=== PATIENT | male | born 1970 | race Caucasian/White ===

== ENCOUNTER 2020-11-07 12:30 | Day surgery (SDC) | payer OTHER ==
[2020-11-04 09:23] VITALS: BP 132/77
[2020-11-07] VITALS (20 sets, daily range): BP systolic 121–163; BP diastolic 69–90
[~2020-11-07] VITALS: Ht 172.7 cm; Wt 89.7 kg
[~2020-11-07 12:30] MED LIST: ESOM20CA31 PO; LORA10TA7 PO; OMEG-148 PO; TRUVT PO; VITA-382 PO
[2020-11-07] MEDS ORDERED: LACTATED RINGERS 1000ML 1,000 ML IV ONE (12:56)
[2020-11-07] MEDS ORDERED: MIDAZOLAM HCL 1 MG/ML 2ML VIAL ONE ×2 (13:25→15:25)
[2020-11-07] MEDS ORDERED: FENTANYL CITRATE PF 50 MCG/1 ML 5ML AMP IV ONE (13:25)
[2020-11-07] MEDS ORDERED: PROPOFOL 10 MG/ML 20ML VIAL IV ONE (13:26)
[2020-11-07] MEDS: CEFTRIAXONE 1G VIAL ONE ×2 (13:28→13:30)
[2020-11-07] MEDS ORDERED: IOHEXOL-350 50ML VIAL IV ONE (13:40)
[2020-11-07] MEDS ORDERED: DEXAMETHASONE SOD PHOSPHATE 10MG/ML 1ML VIAL ONE (14:31)
[2020-11-07] MEDS ORDERED: MEPERIDINE-PF 25 MG/ML SYG ONE ×3 (14:32→14:55)
[2020-11-07] MEDS ORDERED: ONDANSETRON 4MG INJ ONE (14:32)
[2020-11-07] MEDS ORDERED: FENTANYL CITRATE PF 50 MCG/1 ML 2ML VIAL ONE ×2 (15:03→15:17)
[2020-11-07] MEDS ORDERED: PHENAZOPYRIDINE HCL 200 MG TABLET ONE (15:10)
== END 2020-11-07 16:25 | disposition home or self-care (01) ==
LOC: DAH 12:30
PROVIDERS: ATTEND Urology
DX: N13.2 Hydronephrosis with renal and ureteral calculous obstruction (principal); Z20.822 Contact with and (suspected) exposure to COVID-19; N40.0 Benign prostatic hyperplasia without lower urinary tract symptoms; N17.9 Acute kidney failure, unspecified; Z79.899 Other long term (current) drug therapy; Z88.6 Allergy status to analgesic agent; Z91.040 Latex allergy status; Z98.890 Other specified postprocedural states; Z88.8 Allergy status to other drugs, medicaments and biological substances
CPT/HCPCS: 36415; 52356; 74018; 74420; 82360; 87635; A4215; A4221; A4222; A4223; A4354; A4358; A4510; A4600; A4657; A4663; A6260; C1758 ×2; C2617; C9803; J0696; J1100; J2175 ×3; J2250 ×2; J2405; J2704; J3010 ×3; J7120; Q9967

== ENCOUNTER 2023-02-16 11:44 | Emergency (ER) | payer OTHER ==
[~2023-02-16] VITALS: Ht 172.7 cm; Wt 117.9 kg
[2023-02-16] MEDS ORDERED: LACTATED RINGERS 1000ML 1,000 ML IV ONE (13:30)
[2023-02-16 14:11] LABS: BASOPHILS # (AUTO) 0.04 K/uL (0.00-0.20); BASOPHILS % (AUTO) 0.5 % (0.0-5.0); EOSINOPHILS # (AUTO) 0.11 K/uL (0.00-0.70); EOSINOPHILS % (AUTO) 1.4 % (0.0-8.0); HEMATOCRIT 42.7 % (42-54); IMMATURE GRANULOCYTE ABSOLUTE 0.07 K/uL (0-1); LYMPHOCYTES # (AUTO) 2.3 K/uL (1.0-4.8); LYMPHOCYTES % (AUTO) 29.8 % (21.0-51.0); MEAN CORPUSCULAR HEMOGLOBIN 30.4 pg (27.0-33.0); MEAN CORPUSCULAR HGB CONC 31.9 g/dL (32.0-36.0); MEAN CORPUSCULAR VOLUME 95.3 fL (79-99); MONOCYTES # (AUTO) 0.9 K/uL (0.1-1.0); MONOCYTES % (AUTO) 11.7 % (3.0-13.0); NEUTROPHILS # (AUTO) 4.3 K/uL (1.8-7.7); NEUTROPHILS % (AUTO) 55.7 % (40.0-77.0); PLATELET COUNT (AUTO) 325 K/uL (130-400); RED BLOOD CELL COUNT(AUTO) 4.48 MIL/uL (4.50-6.20); RED CELL DISTRIBUTION WIDTH 13.9 % (11.0-15.5); WHITE BLOOD COUNT (AUTO) 7.6 K/uL (4.8-10.8)
[2023-02-16 14:19] LABS: CREATININE 0.8 mg/dL (0.5-1.5); POTASSIUM 3.6 mmol/L (3.5-5.1)
[2023-02-16 14:23] LABS: ALBUMIN 3.2 g/dL (3.5-5.0); BILIRUBIN,TOTAL 0.3 mg/dL (0.2-1.0); TOTAL PROTEIN, SERUM 7.2 g/dL (6.0-8.3)
[2023-02-16 15:22] LABS: ADD UA MICROSCOPIC YES; APPEARANCE,URINE CLEAR (CLEAR); BILIRUBIN,URINE NEGATIVE (NEGATIVE); COLOR,URINE LIGHT-YELLOW (YELLOW); GLUCOSE, URINE (UA) NEGATIVE (NEGATIVE); KETONES,URINE NEGATIVE (NEGATIVE); LEUKOCYTE ESTERASE ,URINE NEGATIVE Leu/uL (NEGATIVE); NITRATE,URINE NEGATIVE (NEGATIVE); OCCULT BLOOD,URINE NEGATIVE (NEGATIVE); PROTEIN,URINE NEGATIVE (NEGATIVE); UROBILINOGEN,URINE 0.2 mg/dL (0.2-1.0)
[2023-02-16 15:23] LABS: MUCUS,URINE RARE LPF (None Seen); RBC,URINE 0-1 /HPF (0-1); WBC,URINE 0-1 /HPF (0-1)
[2023-02-16] MEDS ORDERED: DIPH1TAB PO (15:36)
[2023-02-16 15:43] VITALS: BP 151/92; PULSE 90; RESP 18; O2SAT 100
[2023-02-19 16:11] LABS: C DIFFICILE TOXIN A/B Not Detected (Not Detected); ENTEROAGGREGATIVE ECOLI Not Detected (Not Detected); GIARDIA LAMBLIA Detected (Not Detected); PLESIOMONAS SHIGELOIDES Not Detected (Not Detected); SAPOVIRUS Not Detected (Not Detected); SHIGELLA/ENTEROINVASIVE E COLI Not Detected (Not Detected); VIBRIO Not Detected (Not Detected); VIBRIO CHOLERAE Not Detected (Not Detected)
== END 2023-02-16 15:46 | disposition home or self-care (01) ==
LOC: EDH 11:44
DX: R11.2 Nausea with vomiting, unspecified (principal); R19.7 Diarrhea, unspecified; Z79.624 Long term (current) use of inhibitors of nucleotide synthesis; Z88.1 Allergy status to other antibiotic agents; Z88.5 Allergy status to narcotic agent; Z91.040 Latex allergy status
CPT/HCPCS: 99284; 96360; 80053; 83690; 85025; 81001; 36415; 74018; 87507; J7120

== ENCOUNTER → 2024-05-21 | Outpatient (CLI) | payer OTHER ==
--- NOTE | 2024-05-21 15:49 | HMCIMG ---
MR SPINAL CANAL, CERV WO CON REASON: CERVICAL DISC DEGENERATION COMPARISON: None TECHNIQUE: Routine cervical imaging protocol was performed. FINDINGS: There is been anterior interbody fusion at C3-5-6 and C6-7. There is moderate interspace narrowing at C4-5 and C7-T1. Vertebral body alignment is normal. There is moderate to metal artifact at the C5 and C6 disc interspaces, interspaces and sulci are not well visualized. Spinal canal also is not well visualized at these levels. Spinal canal appears otherwise patent. There are no areas of focal stenosis. There is foraminal narrowing at C4-5, moderate in degree, on both sides. Foramina appear otherwise preserved. Cervical cord appears unremarkable although only partially visualized at the level of the surgical hardware. IMPRESSION: 1. Postop changes C5-6 and C6-7, fixation metal artifact causes limited visualization in this area. 2. Moderate interspace narrowing at the C4-5, there is also moderate to marked foraminal narrowing bilaterally at this level.
== END | disposition home or self-care (01) ==
LOC: RAH 13:43
PROVIDERS: ATTEND Physician Assistant
DX: M48.03 Spinal stenosis, cervicothoracic region (principal); M50.30 Other cervical disc degeneration, unspecified cervical region; M43.22 Fusion of spine, cervical region
CPT/HCPCS: 72141

== ENCOUNTER 2024-12-01 07:53 | Emergency (ER) | payer OTHER ==
[~2024-12-01] VITALS: Ht 172.7 cm; Wt 106.6 kg
--- NOTE | 2024-12-01 08:22 | ERN ---
General Chief Complaint: Shoulder Injury/Pain-Left Stated Complaint: SHOULDER Time Seen by MD: 07:57 Source: patient History of Present Illness Initial Comments 54-year-old healthy male who was walking his dog last night when he tripped on a curb falling forward breaking his fall with his right hand and then hitting his left shoulder. He went to bed last night but this morning the pain was too much and he comes to the hospital for evaluation. His pain at rest is 2/2 any motion with his left arm increases the pain to 10/10. He has had surgery on his left shoulder from a football injury five years ago. [place] [facility] [place] and the surgery involved "muscle and tendon repairs". Timing/Duration: 24 hours Allergies: Coded Allergies: Latex, Natural Rubber (Unverified Allergy, Unknown, 11/04/20) ciprofloxacin (Unverified Allergy, Unknown, 11/04/20) codeine (Unverified Allergy, Unknown, 11/04/20) Home Meds Reported Medications Loratadine (Claritin) 10 Mg Tab, 10 MG PO DAILY, TAB 11/04/20 Esomeprazole Magnesium (Nexium) 20 Mg Capsule.dr, 20 MG PO DAILY, CAP 11/04/20 Vitamin D3/Vitamin K2 (Mk4) (K2 Plus D3 Tablet) 1 Each Tablet, 1 EACH PO DAILY, TAB 11/04/20 [place]-3S/Dha/Epa/Fish Oil (Fish Oil 1,000 mg Softgel) 1 Each Capsule, 1 EACH PO DAILY, CAP 11/04/20 Emtricitabine/Tenofovir (Truvada) 1 Tab Tab, 1 TAB PO DAILY, TAB 11/04/20 Past Medical History Past Medical History: Kidney Stone Medical History Other: CDIFF Past Surgical History: Other Surgical History Other: left shoulder sx ROS Dictation Review of systems otherwise negative Physical Exam General Appearance: (+) mild distress Orientation: (+) alert, (+) oriented x 3 Head/Face Trauma: No Eye: bilateral eye normal inspection, bilateral eye PERRL, bilateral eye EOMI Ear, Nose, Throat: (+) hearing grossly normal, (+) normal ENT inspection Neck: (+) normal inspection, (+) supple, (+) full range of motion Respiratory: (+) chest non-tender, (+) lungs clear Heart: (+) regular Vascular: (+) no edema Extremities Comment Patient's right palm has an abrasion. Patient's left shoulder seems anteriorly dislocated. Distal nerves muscular strength circulation intact. Neurologic/Psychiatric: (+) normal speech, (+) scale balancer II-XII nml as tested Results Laboratory and Microbiology Lab and Micro Result Laboratory Tests Test 12/01/24 10:07 Sodium Level 139 mmol/L (136-145) Potassium Level 3.9 mmol/L (3.5-5.1) Chloride Level 102 mmol/L (101-111) Carbon Dioxide Level 32 mmol/L (21-32) Blood Urea Nitrogen 9 mg/dL (7-18) Creatinine 1.1 mg/dL (0.5-1.3) Glomerular Filtration Rate Calc 80 mL/min (>90) Random Glucose 106 mg/dL (70-105) H Total Calcium 8.7 mg/dL (8.5-10.1) MDM We will obtain plain films of his left shoulder and humerus. I will give him some pain control and some muscle relaxants. Plain films are negative all order an MRI. Patient's exam is very suspicious for rotator cuff injury most concerning supraspinatus. ED Course Orders Procedure Category Date Status Time Shoulder Comp 2+Vws Lt RAD 12/01/24 Resulted 08:22 Humerus 2+Vws Lt RAD 12/01/24 Resulted 08:22 Orphenadrine Citrate PHA 12/01/24 Complete (Norflex) 09:30 Triamcinolone Acet PHA 12/01/24 Complete 40mg/Ml 1ml (Kenalog 09:30 Basic Metabolic Panel LAB 12/01/24 Complete 09:56 Mr Shoulder Left Wwo MRI 12/01/24 Taken 10:01 Gadoterate Meglumine PHA 12/01/24 Complete (Clariscan) 14:32 Current Medications Medications (Trade) Dose Ordered Sig/Leila Route PRN Reason Start Time Stop Time Status Last Admin Dose Admin Gadoterate Meglumine (Clariscan) 10 mmol STK-MED ONCE IV 12/01/24 14:32 12/01/24 14:37 DC Orphenadrine Citrate (Norflex) 60 mg ONCE ONCE IM 12/01/24 09:30 12/01/24 09:32 DC 12/01/24 10:15 Triamcinolone Acetonide (Kenalog 40) 40 mg ONCE ONCE IM 12/01/24 09:30 12/01/24 09:32 DC 12/01/24 10:38 Vital Signs Date Time Temp Pulse Resp B/P (MAP) Pulse Ox O2 Delivery O2 Flow Rate FiO2 12/01/24 16:20 96.8 92 18 140/80 96 Room Air* 0 21 12/01/24 08:02 96.8 104 18 143/88 96 Room Air* 0 21 12/01/24 07:59 96.8 104 18 143/88 96 Room Air 0 DX & DISP Disposition: Discharge Departure Impression: Primary Impression: Shoulder sprain Condition: Stable Additional Instructions: The plain films are negative the MRI scan has not been read. I am not able to interpret the MRI scans but I am concerned about some inflammation with the supraspinatus tendon. You need to follow up with a primary care physician who can refer you to an orthopedic surgeon. In the meantime I will give you a prescription for pain medications and muscle relaxants. Ice the shoulder and take ibuprofen. I have given you a referral to an orthopedic surgeon that I t rust his name is Dr. Palma. Referrals: NANCY JORDAN (PCP) RADHA PALMA MD, GORDON K MD Dec 01, 2024 08:22
--- NOTE | 2024-12-01 09:40 | HMCIMG ---
EXAM: CR left Shoulder, 3 View. CLINICAL HISTORY: pain COMPARISON: None provided. FINDINGS: Prosthetic lower cervical spine disc replacement. BONES: No acute fracture or aggressive appearing osseous lesion. JOINTS: No dislocation. The joint spaces are normal. SOFT TISSUES: The soft tissues are unremarkable. IMPRESSION: No acute abnormality evident on examination of the left shoulder. No acute fracture or dislocation. /[place]
--- NOTE | 2024-12-01 09:41 | HMCIMG ---
EXAM: CR left Humerus, 3 View. CLINICAL HISTORY: pain COMPARISON: None provided. FINDINGS: BONES: No acute fracture or aggressive appearing osseous lesion. JOINTS: No dislocation. The joint spaces are normal. SOFT TISSUES: The soft tissues are unremarkable. IMPRESSION: No acute osseous abnormality. /[place]
[2024-12-01] MEDS: ORPHENADRINE 60MG/2ML IM ONE (10:15)
[2024-12-01 10:28] LABS: CREATININE 1.1 mg/dL (0.5-1.3); GLOMERULAR FILTR. RATE CALC 80.0 mL/min (>90); GLUCOSE,RANDOM 106.0 mg/dL (70-105); SODIUM SERUM 139.0 mmol/L (136-145); UREA NITROGEN, BLOOD 9.0 mg/dL (7-18)
[2024-12-01] MEDS: TRIAMCINOLONE ACETONIDE 40 MG/ML 1ML VIAL IM ONE (10:38)
[2024-12-01] MEDS ORDERED: GADOTERATE MEGLUMINE 10 MMOL/20 ML VIAL IV ONE (14:32)
--- NOTE | 2024-12-01 16:18 | NUR ---
PAIN MEDICATION REQUESTED MD IS AWARE ORDERS PENDING
[2024-12-01 16:20] VITALS: BP 140/80; PULSE 92; RESP 18; TEMP 96.8; O2SAT 96
[2024-12-01] MEDS ORDERED: KETO10 PO (16:38)
--- NOTE | 2024-12-02 14:04 | HMCIMG ---
EXAMINATION: MRI OF THE LEFT SHOULDER. CLINICAL HISTORY: Left shoulder injury. COMPARISON: None provided. TECHNIQUE: Multiplanar, multisequence MR images of the left shoulder without and with intravenous contrast are submitted. FINDINGS: There is type I acromion with no subacromial spur. The coracoclavicular ligament is intact. The acromioclavicular joint is normal. No periosseous synovial thickening. There is mild subacromial-subdeltoid bursitis. The peritendinous soft tissues are normal. Wall thickness supraspinatus and infraspinatus footprint tear measuring 5 cm elan-posteriorly with retraction by 4.2 cm up to gleno-humeral joint level. The subscapularis and teres minor tendons are intact without evidence of tendinopathy or tear. Moderate infraspinatus and teres minor muscle fatty atrophy. The long head of the biceps tendon is normal in course and morphology. Bicipital anchor is intact. There is normal bone marrow signal within the shoulder girdle without fracture, avascular necrosis, or osteomyelitis. Small supraspinatus entheseal cystic changes. The labrum is normal in bulk in signal. The glenohumeral joint is intact. Moderate joint effusion with fluid extending into subcoracoid Bursa and bicipital groove. The soft tissues are normal. IMPRESSION: 1. Large full-thickness supraspinatus and infraspinatus tear measuring 5 cm with 4.2 cm retraction. 2. Moderate infraspinatus and teres minor muscle fatty atrophy. 3. Moderate glenohumeral joint effusion with extension into subcoracoid bursa and bicipital groove. /[place]
== END 2024-12-01 16:54 | disposition home or self-care (01) ==
LOC: EDH 07:53
DX: S46.012A Strain of muscle(s) and tendon(s) of the rotator cuff of left shoulder, initial encounter (principal); Z79.624 Long term (current) use of inhibitors of nucleotide synthesis; Z88.1 Allergy status to other antibiotic agents; Z88.5 Allergy status to narcotic agent; Z91.040 Latex allergy status; W18.39XA Other fall on same level, initial encounter; Y93.01 Activity, walking, marching and hiking; Y92.89 Other specified places as the place of occurrence of the external cause; Y99.8 Other external cause status
CPT/HCPCS: 99285; 73223; 96374; 80048; 36415; 73060; 73030; 96372 ×2; J1885; J3301; A9575; J2360